=== PATIENT | female | born 1980 | race Caucasian/White ===

== ENCOUNTER → 2016-05-10 20:33 | Outpatient (CLI) | payer OTHER ==
[2015-06-17 19:57] VITALS: BMI 29.1
[~2016-05-10 20:33] MED LIST: AMOXICILLIN875 MG PO; GLUCOPHAGE1000 MG PO; HUMALOG 30100 UNITS/; LANTUS SOL100 UNIT/1 SQ; LEVAQUIN750 MG PO; LYRICA75 MG PO; MUCINEX600 MG PO; NORCO 7.5/325 T1 TA1 PO; NOVOLOG100 U/M1 SC; PRINIVIL20 MG PO; PROAIR HFA8.5 GM INH; PROTONIX40 MG PO; REGLAN5 MG PO; SYNTHROID125 MCG PO; TOUJEO SOL300 UNIT/1 SQ
[2016-05-10 21:15] LABS: AMYLASE - SERUM 90 U/L (25-115); LIPASE 168 U/L (73-393)
== END | disposition home or self-care (01) ==
LOC: D.LABREF 20:33
PROVIDERS: Family Medicine
DX: R10.11 Right upper quadrant pain (principal); R10.13 Epigastric pain; R10.12 Left upper quadrant pain

== ENCOUNTER 2016-05-26 18:03 | Observation (INO) | payer OTHER, MEDICAID ==
[~2016-05-26] VITALS: Ht 165.1 cm; Wt 90.3 kg
[2016-05-26 02:00] VITALS: BP 104/70
[~2016-05-26 18:03] MED LIST changes: -HUMALOG 30100 UNITS/; -LANTUS SOL100 UNIT/1 SQ; -LYRICA75 MG PO; -NORCO 7.5/325 T1 TA1 PO; -NOVOLOG100 U/M1 SC; -PROTONIX40 MG PO; -REGLAN5 MG PO; -SYNTHROID125 MCG PO; -TOUJEO SOL300 UNIT/1 SQ
[2016-05-26] MEDS ORDERED: SYNTHROID125 MCG PO (18:27)
[2016-05-26] MEDS ORDERED: LYRICA75 MG PO (18:28)
[2016-05-26] MEDS ORDERED: NORCO 7.5/325 T1 TA1 PO (18:29)
[2016-05-26] MEDS ORDERED: HUMALOG 30100 UNITS/ (18:34)
[2016-05-26] MEDS ORDERED: LANTUS SOL100 UNIT/1 SQ (18:39)
[2016-05-26 18:46] LABS: BASOPHILS 0.5 % (0.0-2.0); EOSINOPHILS 1.8 % (0-7); HEMATOCRIT 37.5 % (36.0-48.0); HEMOGLOBIN 12.4 g/dL (12-16); IMMATURE GRANULOCYTES 0.7 % (0-5); LYMPHOCYTES 32.3 % (15-50); MCH 33.6 pg (26.0-34.0); MCHC 33.1 g/dL (31.0-37.0); MCV 101.6 fL (80.0-100.0); MEAN PLATELET VOLUME 10.6 fL (7.4-10.4); MONOCYTES 6.9 % (2-11); NEUTROPHILS 57.8 % (40-80); PLATELET COUNT 252 10x3/uL (130-400); RBC 3.69 10x6/uL (4.00-5.40); RDW 14.4 % (11.5-14.5); WBC 10.1 10x3/uL (4.8-10.8)
[2016-05-26 19:13] LABS: ALKALINE PHOSPHATASE 85 U/L (46-116); ALT (SGPT) 71 U/L (10-68); BILIRUBIN - TOTAL 0.24 mg/dL (0.2-1.3); CALCIUM 8.7 mg/dL (8.5-10.1); CARBON DIOXIDE 25.4 mmol/L (21.0-32.0); CHLORIDE - SERUM 102 mmol/L (98-107); CREATININE - SERUM 0.9 mg/dL (0.6-1.3); POTASSIUM - SERUM 4.3 mmol/L (3.5-5.1); PROTEIN - SERUM 7.4 g/dL (6.4-8.2); SODIUM 140 mmol/L (136-145); UREA NITROGEN 29 mg/dL (7-18); eGFR NON AFRICAN AMERICAN 75 mL/min (90-120)
[2016-05-26 19:23] LABS: CALC OSMOLALITY 291 mosm/kg (275-300); GLUCOSE 225 mg/dL (74-106)
--- NOTE | 2016-05-26 20:00 | NUR ---
RESTING IN BED. ALERT/ORIENTED. ON CLEAR LIQUID DIET. WILL BE NPO AT MIDNIGHT UNTIL SEEN BY TRAIN INSPECTOR IN AM. CURRENTLY SR PER TELEMETRY. SEE SHIFT ASSESSMENT. CPOC.
[2016-05-26 20:41] LABS: CKMB 7.3 U/L (0.0-3.6); CREATINE KINASE 556 UL (21-215)
[2016-05-26 20:44] LABS: TROPONIN-I < 0.017 ng/mL (0.000-0.060)
--- NOTE | 2016-05-26 23:36 | NUR ---
22G IV STARTED TO LEFT HAND WITH NS @ 100ML/HR INFUSING. PT TO BE NPO AT MIDNIGHT. INSTRUCTED ON NEED FOR UA SPECIMENS X 2. HAT IN TOILET TO COLLECT SPECIMEN.
[2016-05-26 23:40] VITALS: BMI 33.1
[2016-05-27] VITALS: BP 122/85
[2016-05-27 00:58] LABS: CKMB 5.3 U/L (0.0-3.6); CREATINE KINASE 449 UL (21-215); TROPONIN-I < 0.017 ng/mL (0.000-0.060)
[2016-05-27 04:00] VITALS: BP 115/83
--- NOTE | 2016-05-27 05:45 | NUR ---
EKG PERFORMED. IVF INFUSING. PT INSTRUCTED ON NEED FOR URINE FOR LAB TESTING.
--- NOTE | 2016-05-27 06:23 | NUR ---
URINE OBTAINED AND SPECIMEN TAKEN TO LAB.
[2016-05-27 06:37] LABS: BASOPHILS 0.5 % (0.0-2.0); EOSINOPHILS 2.4 % (0-7); HEMATOCRIT 35.4 % (36.0-48.0); HEMOGLOBIN 11.5 g/dL (12-16); IMMATURE GRANULOCYTES 0.7 % (0-5); LYMPHOCYTES 32.7 % (15-50); MCH 33.1 pg (26.0-34.0); MCHC 32.5 g/dL (31.0-37.0); MEAN PLATELET VOLUME 10.5 fL (7.4-10.4); MONOCYTES 7.2 % (2-11); NEUTROPHILS 56.5 % (40-80); PLATELET COUNT 222 10x3/uL (130-400); RBC 3.47 10x6/uL (4.00-5.40); RDW 14.6 % (11.5-14.5); WBC 7.6 10x3/uL (4.8-10.8)
[2016-05-27 07:04] LABS: APPEARANCE CLEAR (CLEAR); BILIRUBIN NEGATIVE (NEGATIVE); COLOR YELLOW (YELLOW); GLUCOSE NEGATIVE (NEGATIVE); KETONE NEGATIVE (NEGATIVE); LEUKOCYTE ESTERASE TRACE (NEGATIVE); NITRITE NEGATIVE (NEGATIVE); PROTEIN NEGATIVE (NEGATIVE); UROBILINOGEN NORMAL (NORMAL)
[2016-05-27 07:05] LABS: BACTERIA FEW /hpf (NONE SEEN); EPITHELIAL CELLS 0-5 /hpf (0-5); RED CELLS - URINE OCC /hpf (0-5)
[2016-05-27 07:17] LABS: ALBUMIN 3.5 g/dL (3.4-5.0); ALKALINE PHOSPHATASE 66 U/L (46-116); ALT (SGPT) 57 U/L (10-68); BILIRUBIN - TOTAL 0.42 mg/dL (0.2-1.3); CALCIUM 8.1 mg/dL (8.5-10.1); CARBON DIOXIDE 25.6 mmol/L (21.0-32.0); CHLORIDE - SERUM 104 mmol/L (98-107); CKMB 4.9 U/L (0.0-3.6); CREATINE KINASE 438 UL (21-215); CREATININE - SERUM 0.8 mg/dL (0.6-1.3); GLUCOSE 183 mg/dL (74-106); PROTEIN - SERUM 6.9 g/dL (6.4-8.2); SODIUM 139 mmol/L (136-145); eGFR NON AFRICAN AMERICAN 86 mL/min (90-120)
[2016-05-27 07:20] LABS: CALC OSMOLALITY 285 mosm/kg (275-300); TROPONIN-I < 0.017 ng/mL (0.000-0.060); UREA NITROGEN 20 mg/dL (7-18)
--- NOTE | 2016-05-27 07:25 | NUR ---
ASSESSMENT COMPLETED.TELEMERTY SHOWS SR 75. LEFT HAND SL PATENT. DENIES ANY NEEDS. FS 165. NPO FOR TEST. SR UP WITH CALL LIGHT IN REACH. WILL MONITOR
[2016-05-27 07:48] VITALS: BP 121/89
[2016-05-27 08:11] LABS: AMYLASE - SERUM 62 U/L (25-115); LIPASE 140 U/L (73-393)
[2016-05-27 10:07] LABS: APPEARANCE CLEAR (CLEAR); BILIRUBIN NEGATIVE (NEGATIVE); COLOR YELLOW (YELLOW); GLUCOSE NEGATIVE (NEGATIVE); KETONE NEGATIVE (NEGATIVE); LEUKOCYTE ESTERASE NEGATIVE (NEGATIVE); NITRITE NEGATIVE (NEGATIVE); PROTEIN NEGATIVE (NEGATIVE); SPECIFIC GRAVITY 1.015 (1.005-1.020); UROBILINOGEN NORMAL (NORMAL)
--- NOTE | 2016-05-27 11:05 | NUR ---
RATIONALE FOR SCD'S EXPLAINED. REFUSED SCD'S AT THIS TIME
[2016-05-27 12:05] VITALS: BP 107/80
[2016-05-27 13:52] VITALS: Ht 165.1 cm; Wt 90.3 kg
[2016-05-27 15:01] LABS: HCG SERUM NEGATIVE (NEGATIVE)
[2016-05-27 15:53] VITALS: BP 123/96
--- NOTE | 2016-05-27 15:54 | NUR ---
PRE OPED FOR EGD. WAITNG FOR TRANSPORT TO GI LAB
--- NOTE | 2016-05-27 17:34 | NUR ---
BACK FROM GI LAB. V/S STABLE.SEDATED BUT EASILY AWAKEN. FAMILY AT BEDSIDE.SR UP WITH CALL LIGHT IN REACH.
[2016-05-27 20:00] VITALS: BP 128/94
--- NOTE | 2016-05-27 20:00 | NUR ---
PT RESTING IN BED. TEARFUL/UPSET AND WANTING SOLD FOOD. SHE SAYS THE DOCTOR THAT DID HER EGD TODAY TOLD HER SHE COULD EAT AFTER 3 HOURS. PT STATES SHE HAS EATEN CLEAR LIQUIDS AND TOLERATED THEM WITH NO PROBLEMS AND NOW SHE WANTS FOOD. PT IS ADAMENT THAT SHE NEEDS FOOD. FINALLY GAVE PT A SANDWICH TRAY AND [place] DRINK AND SHE FINISHED THE WHOLE MEAL. IVF INFUSING NS @ 100ML/HR TO LEFT HAND. SR PER TELEMETRY.
[2016-05-28] VITALS: BP 124/82
[2016-05-28 04:00] VITALS: BP 129/90
[2016-05-28 05:01] LABS: BASOPHILS 0.5 % (0.0-2.0); EOSINOPHILS 3.3 % (0-7); HEMATOCRIT 35.1 % (36.0-48.0); HEMOGLOBIN 11.5 g/dL (12-16); IMMATURE GRANULOCYTES 0.5 % (0-5); LYMPHOCYTES 33.3 % (15-50); MCH 32.9 pg (26.0-34.0); MCHC 32.8 g/dL (31.0-37.0); MCV 100.3 fL (80.0-100.0); MEAN PLATELET VOLUME 10.3 fL (7.4-10.4); MONOCYTES 7.2 % (2-11); NEUTROPHILS 55.2 % (40-80); PLATELET COUNT 213 10x3/uL (130-400); RDW 14.3 % (11.5-14.5); WBC 6.7 10x3/uL (4.8-10.8)
[2016-05-28 05:21] LABS: ALBUMIN 3.5 g/dL (3.4-5.0); ALKALINE PHOSPHATASE 64 U/L (46-116); ALT (SGPT) 60 U/L (10-68); BILIRUBIN - TOTAL 0.47 mg/dL (0.2-1.3); CALC OSMOLALITY 282 mosm/kg (275-300); CALCIUM 8.4 mg/dL (8.5-10.1); CHLORIDE - SERUM 104 mmol/L (98-107); CREATININE - SERUM 0.7 mg/dL (0.6-1.3); GLUCOSE 162 mg/dL (74-106); POTASSIUM - SERUM 3.8 mmol/L (3.5-5.1); SODIUM 140 mmol/L (136-145); eGFR NON AFRICAN AMERICAN > 90 mL/min (90-120)
[2016-05-28 05:23] LABS: UREA NITROGEN 12 mg/dL (7-18)
--- NOTE | 2016-05-28 07:40 | NUR ---
ASSESSMENT COMPLETED. TELEMERTY SHOWS SR 80. LEFT HAND IV WITH NS AT 100. DENIES ANY NEEDS. REFUSES SCDS. CALL LIGHT IN REACH WITH SR UP
[2016-05-28 08:22] VITALS: BP 124/79
--- NOTE | 2016-05-28 10:16 | NUR ---
RESTING QUIETLY NAD NOTED
--- NOTE | 2016-05-28 11:29 | NUR ---
LYING QUIETLY. DENIES ANY NEED. CALL LIGHT IN REACH WITH SIDE RAILS UP. WILL MONITOR
--- NOTE | 2016-05-28 12:30 | NUR ---
Nutrition follow-up: Diet has advanced to ADA consistent CHO with pt eating 100% of all meals offered. Labs reviewed Wt: 199# RDN following.
[2016-05-28 12:42] VITALS: BP 124/88
--- NOTE | 2016-05-28 15:40 | NUR ---
LYING QUIETLY. DENIES ANY NEEDS. SR UP WITH CALL LIGHT IN REACH. WILL MONITOR
[2016-05-28 16:55] VITALS: BP 138/99
--- NOTE | 2016-05-28 18:16 | NUR ---
HOB UP WATCHING TV. TELEMERTY SHOWS SR. SR UP WITH CALL LIGHT IN REACH. WILL MONITOR
--- NOTE | 2016-05-28 19:26 | NUR ---
INITIAL ROUNDS COMPLETED. PT DENIES ANY DISCOMFORT. WILL CONTINUE TO MONITOR.
[2016-05-28 21:31] VITALS: BP 122/88
--- NOTE | 2016-05-28 22:04 | NUR ---
ASSESSMENT COMPLETED AR 2000 HRS. PT DENIED ANY DISCOMFORT. VSS. IV TO L HAD SL. LUNGS CTA. SR PER CM HR 84. PM MEDS GIVEN. PT CURRENTLY RESTING WITH EYES CLOSED. RESP EVEN AND REGULAR. SR UP X2, CALL LIGHT WITHIN REACH.
--- NOTE | 2016-05-29 00:27 | NUR ---
PT RESTING WITH EYES CLOSED. RESP EVEN AND REGULAR. SR UP X2, CALL LIGHT WITHIN REACH.
--- NOTE | 2016-05-29 02:10 | NUR ---
PT RESTING WITH EYES CLOSED. RESP EVEN AND REGULAR. SR UP X2, CALL LIGHT WITHIN REACH.
--- NOTE | 2016-05-29 04:18 | NUR ---
PT RESTING WITH EYES CLOSSED. RESP EVEN AND REGULAR. SR UP X2, CALL LIGHT WITHIN REACH.
[2016-05-29 05:53] VITALS: BP 133/91
--- NOTE | 2016-05-29 06:33 | NUR ---
VSS THROUGHOUT NIGHT. SR PER CM. PT DENIED ANY DISCOMFORT. NEEDS MET; WILL CONITNUE TO MONITOR.
--- NOTE | 2016-05-29 07:16 | NUR ---
RECEIVED PT REPORT., NO OTHER NEEDS AT THIS TIME. WILL CONTINUE TO MONITOR.
--- NOTE | 2016-05-29 07:55 | NUR ---
PT IS ALERT. ASSESSMENT DONE PER FLOWSHEET. NO OTHER NEEDS AT THIS TIME. WILL CONTINUE TO MONITOR.
[2016-05-29 09:19] VITALS: BP 114/90
[2016-05-29] MEDS ORDERED: REGLAN5 MG PO (12:10)
[2016-05-29] MEDS ORDERED: PROTONIX40 MG PO (12:10)
[2016-05-29 12:21] VITALS: BP 131/100
--- NOTE | 2016-05-30 10:24 | DS ---
PATIENT:FLAKITA GUZMAN :80 MEDICAL RECORD: [id number] DISCHARGE SUMMARY ADMISSION DATE: 05/26/16 DISCHARGE DATE: 05/29/16 DATE OF ADMISSION: 05/28/2016. DATE OF DISCHARGE: 05/30/2016. ADMITTING DIAGNOSES: Abdominal pain, diabetes mellitus, morbid obesity. DISCHARGE DIAGNOSES: Abdominal pain, diabetes mellitus, morbid obesity. HOSPITAL COURSE: The patient is a 35-year-old female, who apparently had been complaining of increasing abdominal discomfort. She was admitted. GI consultation was obtained. The patient did undergo an EGD, which showed some gastritis, possible gastric and duodenitis. She was started on Prevacid as well as Protonix. Pain has almost totally resolved. During hospitalization, the patient had an abdominal CT scan. The scan did reveal no acute findings, hepatic steatosis was present. It was recommended that the patient have a followup MRI of the abdomen with and without contrast for further evaluation to exclude underlying mass in her abdomen. There was a 5 mm noncalcified pulmonary nodule noted in the left lower lung as well, which was indeterminate. It was recommended that the patient have a followup CT scan of the chest in 6-12 months. This will be arranged with Dr. Padilla to do on an outpatient basis. The pain had resolved. The patient was feeling better. She did wish to be discharged home. Therefore, the patient was discharged on a regular diet. She would be on Reglan 5 mg p.o. q.a.c. and q.h.s. for 1 week, Protonix 40 mg p.o. q.a.m., lisinopril 20 mg 1 p.o. q. day, ProAir HFA 90 mcg 2 puffs q.6 hours p.r.n. shortness of breath, Synthroid 125 mcg once a day, Lyrica 75 mg p.o. b.i.d., [place] 7.5 one every 6 hours p.r.n. severe pain, Humulin 30 units q.a.c., also was on Lantus 30 units subq q.h.s. The patient will follow up with Dr. Padilla in approximately 1 week. It was also recommended that the patient have a gastric emptying study and await biopsies from her EGD. TRANSINT:[id number] Voice Confirmation ID: [id number] DOCUMENT ID: [id number] DENISE MIRZA MD at 1024 CC: SKYLER PADILLA DO [id number] DICTATION DATE: 05/29/16 1214 BENEFITS ASSISTANT: 05/30/16 0856 DIS IN 05/29/16 [id number] [place] [address]
--- NOTE | 2016-06-08 12:04 | OP ---
PATIENT NAME: FLAKITA GUZMAN MEDICAL RECORD: [id number] :80 LOCATION:D.M2 D.2123 ADMISSION DATE:05/26/16 SURGEON: ESTRELLA HOWARD DO DATE OF OPERATION: 05/27/2016 PROCEDURE: EGD with biopsies. SCOPE: Olympus video gastroscope. MEDICATIONS: 400 mg of propofol per anesthesia. INDICATIONS: Epigastric abdominal pain. FINDINGS: Informed consent was given. The patient was made comfortable with the above medication. After reaching an adequate level of sedation by slow IV push, the patient was placed on her left side. The endoscope was then advanced under direct visualization through the mouth to the second portion of the duodenum. The upper, middle and distal thirds of the esophagus appeared normal. At the GE junction, there was a possible LA class A mild reflux induced esophagitis. The scope was advanced into the stomach and retroflexion was performed to view the cardia and the fundus. There were no abnormalities noted here. The scope was then advanced down to the antrum and prepyloric region. In the antrum, there was some very mild erythema consistent with possible gastritis. Random biopsies were taken in the stomach and sent for histology and to rule out H. pylori. The scope was advanced into the duodenum where there were areas of villous flattening and potential duodenitis. Random biopsies were taken of this site as well and sent for histology. The scope was withdrawn from the patient. The patient tolerated the procedure well and there were no complications. Estimated blood loss less than 3 mL. IMPRESSION: 1. Mild esophagitis at the GE junction consistent with reflux. 2. Possible gastritis and duodenitis. 3. Epigastric pain likely not related to findings endoscopically. PLAN AND RECOMMENDATIONS: 1. Continue workup of other potential causes for abdominal pain. 2. Consider gastric emptying study. 3. Continue proton pump inhibitor for 30 days to see if this improves epigastric symptoms. TRANSINT:[id number] Voice Confirmation ID: [id number] DOCUMENT ID: [id number] ESTRELLA HOWARD DO at 1204 CC: [id number] DICTATION DATE: 05/27/16 1709 SLUG PRESS OPERATOR: 05/27/16 2342 DIS IN 05/29/16 [id number] [place] [address]
== END 2016-05-29 12:54 | disposition home or self-care (01) ==
LOC: OBSVTIME 18:03 → D.M2 18:03
PROVIDERS: Anesthesiology; ADMIT Family Medicine
DX: K21.0 Gastro-esophageal reflux disease with esophagitis (principal); K29.70 Gastritis, unspecified, without bleeding; K29.80 Duodenitis without bleeding; E11.40 Type 2 diabetes mellitus with diabetic neuropathy, unspecified; Z79.4 Long term (current) use of insulin; I10 Essential (primary) hypertension; E66.01 Morbid (severe) obesity due to excess calories; R91.1 Solitary pulmonary nodule; K76.0 Fatty (change of) liver, not elsewhere classified; Z87.891 Personal history of nicotine dependence; Z68.33 Body mass index [BMI] 33.0-33.9, adult

== ENCOUNTER 2016-07-13 10:18 | Inpatient (IN) | payer OTHER, MEDICAID ==
[~2016-07-13] VITALS: Ht 165.1 cm; Wt 93.4 kg
[~2016-07-13 10:18] MED LIST changes: +HUMALOG 30100 UNITS/; +LANTUS SOL100 UNIT/1 SQ; +LYRICA75 MG PO; +NORCO 7.5/325 T1 TA1 PO; +PROTONIX40 MG PO; +REGLAN5 MG PO; +SYNTHROID125 MCG PO
[2016-07-13 11:07] LABS: BASOPHILS 0.4 % (0-2); EOSINOPHILS 1.2 % (0-7); HEMATOCRIT 40.7 % (36.0-48.0); HEMOGLOBIN 13.5 g/dL (12-16); IMMATURE GRANULOCYTES 0.7 % (0-5); LYMPHOCYTES 22.9 % (15-50); MCH 34.4 pg (26.0-34.0); MCHC 33.2 g/dL (31.0-37.0); MCV 103.6 fL (80.0-100.0); MEAN PLATELET VOLUME 10.5 fL (7.4-10.4); MONOCYTES 6.6 % (2-11); NEUTROPHILS 68.2 % (40-80); RBC 3.93 10x6/uL (4.00-5.40); RDW 13.5 % (11.5-14.5); WBC 10.3 10x3/uL (4.8-10.8)
[2016-07-13 11:12] LABS: PLATELET COUNT 290 10x3/uL (130-400)
[2016-07-13 11:26] LABS: ALBUMIN 3.8 g/dL (3.4-5.0); ANION GAP 15.2 mmol/L (8-16); BILIRUBIN - TOTAL 0.31 mg/dL (0.2-1.3); CALCIUM 9.6 mg/dL (8.5-10.1); CARBON DIOXIDE 25.9 mmol/L (21.0-32.0); CREATININE - SERUM 1.1 mg/dL (0.6-1.3); POTASSIUM - SERUM 4.1 mmol/L (3.5-5.1); PROTEIN - SERUM 7.7 g/dL (6.4-8.2)
[2016-07-13 11:27] VITALS: BP 111/70; BMI 10.9
[2016-07-13 12:08] VITALS: BP 111/70
[2016-07-13] MEDS ORDERED: TOUJEO SOL300 UNIT/1 SQ (14:51)
[2016-07-13] MEDS ORDERED: NOVOLOG100 U/M1 SC (14:53)
[2016-07-13 14:59] LABS: HCG SERUM NEGATIVE (NEGATIVE)
[2016-07-13 19:00] VITALS: BP 110/68
--- NOTE | 2016-07-13 20:39 | NUR ---
2000) REC'D. STATING DR PRUETT WAS JUST HERE AND SAYS I CAN EAT.INFORMED HE DID NOT WRITE A DIET FOR ABDOMINAL ULTRASOUND.FAMILY HERE WITH MEAL FROM [facility] "STATES DR PRUETT WAS JUST HERE AND SAID I COULD EAT SO I'M GOING TO EAT.EXPLAINED IF EAT A MEAL MAY PUT YOU A DAY BEHIND IN THE INSTANCE NEEDED TO DO PROCEDURE. VOICES UNDERSTANDING.STATES AGAIN STOOD HERE AND SAID I COULD EAT AND I'M GONNA EAT.
--- NOTE | 2016-07-13 22:37 | NUR ---
NEW IV SITED TO LEFT FOREARM. 20G X 1 ATTEMPT. GOOD BLOOD RETURN. FLUSHES W/O DIFFICULTY. FLUIDS HOOKED BACK UP PER ORDER. PT TOLERATED WELL. IV TO LEFT HAND D/C'D WITH CATH TIP INTACT.
[2016-07-14 04:00] VITALS: BP 134/74
[2016-07-14 04:54] LABS: BASOPHILS 0.4 % (0-2); EOSINOPHILS 2.2 % (0-7); HEMATOCRIT 38.7 % (36.0-48.0); HEMOGLOBIN 12.9 g/dL (12-16); LYMPHOCYTES 38.3 % (15-50); MCH 34.7 pg (26.0-34.0); MCHC 33.3 g/dL (31.0-37.0); MEAN PLATELET VOLUME 10.4 fL (7.4-10.4); MONOCYTES 7.3 % (2-11); NEUTROPHILS 50.8 % (40-80); PLATELET COUNT 257 10x3/uL (130-400); RBC 3.72 10x6/uL (4.00-5.40); RDW 13.6 % (11.5-14.5); WBC 8.3 10x3/uL (4.8-10.8)
[2016-07-14 05:26] LABS: ALBUMIN 3.5 g/dL (3.4-5.0); ALKALINE PHOSPHATASE 100 U/L (46-116); ALT (SGPT) 64 U/L (10-68); BILIRUBIN - TOTAL 0.15 mg/dL (0.2-1.3); CALC OSMOLALITY 285 mosm/kg (275-300); CARBON DIOXIDE 26.2 mmol/L (21.0-32.0); CHLORIDE - SERUM 102 mmol/L (98-107); CREATININE - SERUM 0.9 mg/dL (0.6-1.3); POTASSIUM - SERUM 4.1 mmol/L (3.5-5.1); PROTEIN - SERUM 7.1 g/dL (6.4-8.2); SODIUM 137 mmol/L (136-145); UREA NITROGEN 25 mg/dL (7-18); eGFR NON AFRICAN AMERICAN 75 mL/min (90-120)
[2016-07-14 05:36] LABS: GLUCOSE 238 mg/dL (74-106)
[2016-07-14 08:25] VITALS: BP 108/71
--- NOTE | 2016-07-14 10:35 | NUR ---
Verbalized name and , patient anxiously keep requesting something to eat, re educated on NPO status until all her order test are complete and red per MD. States no abdominal pain at this time " I'm just hungry." no nausea or vomitting. No distress assessed. Call light within reach. Instructed patient that we need a urine specimen. Verbalized understanding.
[2016-07-14 10:59] VITALS: BP 122/91
[2016-07-14 15:14] VITALS: Ht 165.1 cm; Wt 93.4 kg
[2016-07-14 16:01] VITALS: BP 122/89
--- NOTE | 2016-07-14 16:30 | NUR ---
All test are complete, nurse Omer contacted to see if patient is able to eat now, low fat diet ordered for dinner. Instructed patient that her NPO status has been discontinued.
--- NOTE | 2016-07-14 17:50 | NUR ---
Ate dinner without any GI complications. Re educated on need for urine specimen, cup and [place] hat in room.
--- NOTE | 2016-07-14 19:00 | NUR ---
BEDSIDE REPORT RECEIVED AND CARE OF PT ASSUMED. PT LYING ON RIGHT SIDE WITH EYES CLOSED AND UNLABORED BREATHING. IV IN LEFT FA PATENT WITH NS INFUSING AT 100 ML / HR. WILL MONITOR NESTORLEY FOR NEEDS.
[2016-07-14 19:37] LABS: APPEARANCE CLEAR (CLEAR); BILIRUBIN NEGATIVE (NEGATIVE); COLOR YELLOW (YELLOW); GLUCOSE NEGATIVE (NEGATIVE); KETONE NEGATIVE (NEGATIVE); LEUKOCYTE ESTERASE NEGATIVE (NEGATIVE); NITRITE NEGATIVE (NEGATIVE); PROTEIN NEGATIVE (NEGATIVE); UROBILINOGEN NORMAL (NORMAL)
[2016-07-14 20:49] VITALS: BP 138/79
--- NOTE | 2016-07-14 22:00 | NUR ---
HS MEDICATIONS GIVEN. FSBS 192 THIS CHECK, REQUIRING COVERAGE WITH 8 UNITS OF INSULIN PER SLIDING SCALE. WILL CONTINUE TO MONITOR FOR NEEDS.
--- NOTE | 2016-07-14 22:15 | NUR ---
PT CONSENTED FOR PPIO JOSEPH.
[2016-07-15] VITALS (9 sets, daily range): BP systolic 111–136; BP diastolic 67–95
--- NOTE | 2016-07-15 | NUR ---
NPO STATUS BEGINS NOW. ALL FOOD AND LIQUIDS REMOVED FROM BEDSIDE TRAY.
--- NOTE | 2016-07-15 07:45 | NUR ---
PT ASSESSMENT COMPLETE PT AWAKE AND ALERT HAS HAD HIBICLENSE SHOWER PRIOR TO LAP EULOGIO TODAY WILL MONITOR CALL LIGHT IN REACH SIDE RAILS UP X 2 NPO
[2016-07-15 09:18] LABS: HEPATITIS C ANTIBODY <0.1 (0.0-0.9)
--- NOTE | 2016-07-15 13:30 | NUR ---
PT TO OR AT THIS TIME PER BED VIA OR STAFF.
[2016-07-15] MEDS ORDERED: OXYCODONE HCL5 MG PO (15:55)
--- NOTE | 2016-07-15 17:06 | NUR ---
RECIEVED TO ROOM FROM RR ASLEEP AROUSES TO VERBAL STIMULI BUT QUICKLY BACK TO SLEEP HAS LAP SITES X 4
--- NOTE | 2016-07-15 18:52 | NUR ---
PT AROUSED TO VERBAL STIMULI FSBS 287 SLIDING SCALE IS TO GIVE 16 UNITS PT REFUSED ALL BUT 8 STATES THAT SHE HAS NO EATEN ENOUGH NOR WILL SHE AFTER HER SURGERY
--- NOTE | 2016-07-15 20:00 | NUR ---
PT RECEIVED RESTING IN BED WITH EYES CLOSED. PT LAPSITES NOTED TO HAVE SCANT AMOUNT OF BLOOD, DRY DRESSINGS APPLIED. PT AWAKE AND ALERT. C/O INCISIONAL PAIN. BED IN LOW POSITION. SIDE RAILS UP X2. CALL LIGHT AND H2O IN REACH.
[2016-07-16] VITALS: BP 134/82
--- NOTE | 2016-07-16 03:51 | NUR ---
RN NOTE: PT LYING IN SEMI ENGLISH'S POSITION WITH EYES CLOSED AND UNLABORED BREATHING. IV IN LEFT FOREARM PATENT WITH NS INFUSING AT 100 ML / HR. ABDOMINAL LAP SITES X4 CLEAN AND DRY. SIDE RAILS UP X2 FOR SAFETY.
[2016-07-16 04:00] VITALS: BP 119/79
[2016-07-16 04:44] LABS: BASOPHILS 0.2 % (0-2); EOSINOPHILS 1.7 % (0-7); HEMATOCRIT 35.2 % (36.0-48.0); HEMOGLOBIN 11.5 g/dL (12-16); IMMATURE GRANULOCYTES 0.3 % (0-5); MCH 34.3 pg (26.0-34.0); MCHC 32.7 g/dL (31.0-37.0); MCV 105.1 fL (80.0-100.0); MEAN PLATELET VOLUME 10.1 fL (7.4-10.4); MONOCYTES 6.6 % (2-11); NEUTROPHILS 82.2 % (40-80); PLATELET COUNT 247 10x3/uL (130-400); RBC 3.35 10x6/uL (4.00-5.40); RDW 13.8 % (11.5-14.5)
[2016-07-16 04:46] LABS: WBC 11.8 10x3/uL (4.8-10.8)
[2016-07-16 04:51] LABS: CALCIUM 7.6 mg/dL (8.5-10.1); CARBON DIOXIDE 24.5 mmol/L (21.0-32.0); CHLORIDE - SERUM 102 mmol/L (98-107); CREATININE - SERUM 0.9 mg/dL (0.6-1.3); MAGNESIUM - SERUM 1.9 mg/dL (1.8-2.4); POTASSIUM - SERUM 4.1 mmol/L (3.5-5.1); SODIUM 137 mmol/L (136-145); eGFR NON AFRICAN AMERICAN 75 mL/min (90-120)
[2016-07-16 04:52] LABS: CALC OSMOLALITY 277 mosm/kg (275-300); GLUCOSE 166 mg/dL (74-106); UREA NITROGEN 12 mg/dL (7-18)
--- NOTE | 2016-07-16 08:20 | OP ---
PATIENT NAME: FLAKITA GUZMAN MEDICAL RECORD: [id number] :80 LOCATION:D.MS Magana2234 ADMISSION DATE:07/14/16 SURGEON: DENISE POOLE MD DATE OF OPERATION: 07/15/2016 SURGEON: Denise Poole MD. PREOPERATIVE DIAGNOSES: 1. Biliary dyskinesia. 2. Right upper quadrant pain. POSTOPERATIVE DIAGNOSES: 1. Biliary dyskinesia. 2. Right upper quadrant pain. PROCEDURE PERFORMED: Laparoscopic cholecystectomy. ANESTHESIA: General. COMPLICATIONS: None. SPECIMENS: Gallbladder. Case was clean contaminated. ESTIMATED BLOOD LOSS: 30 cc. OPERATIVE COURSE: After consent was obtained, the patient was taken to the operating room and placed in the supine position on the operating table. Next, general anesthesia was given via endotracheal intubation after a timeout was performed to confirm the correct patient and procedure. The abdomen was then prepped and draped in typical sterile fashion. Local anesthetic was injected just above the umbilicus. A stab incision was performed with 11-blade scalpel. Using a 5-mm bladeless optical trocar, the abdomen was entered under direct laparoscopic vision. Adequate pneumoperitoneum was achieved. The abdominal cavity was inspected. No evidence of bowel injury. No evidence of bleeding. The patient was then placed in the steep reverse Trendelenburg position. At this time, all remaining trocars were placed after the administration of local anesthetic under direct laparoscopic vision, two 5-mm trocars in the right upper quadrant and 11-mm trocar in the subxiphoid position. At this time, the fundus of the gallbladder was grasped and retracted cephalad. The infundibulum was grasped and retracted laterally. The peritoneum was incised using blunt dissection with a [place] dissector, dissection was performed until the critical view was obtained. The cystic duct lateral, cystic artery medial, liver in the posterior window. Three clips were placed in the proximal cystic duct, 1 clip distal and 2 clips were placed in the proximal cystic artery. The duct and artery were then transected with laparoscopic Metzenbaum scissors. The 11-mm trocars were placed. The 12-mm trocar and the 12-mm Ligaclip distributor of directories were used to reinforce the cystic duct. The cystic duct was markedly dilated. The larger clips were able to be placed across the entire width of the duct. At this time, the remaining portion of the gallbladder was then dissected off the liver bed using electrocautery. Once complete, it was grasped with the tenaculum and removed through the 11-mm trocar and sent for permanent pathology. Next, the operative site was copiously irrigated and suctioned. Careful attention was paid to hemostasis, which was obtained with ____ electrocautery. OPERATIVE REPORT [id number] FLAKITA The operative site was again inspected. There are [address] in the cystic duct, [address] in the cystic artery. There was no evidence of bowel injury. No evidence of bleeding, no evidence of bile leak. At this time, the operative site was again irrigated and suctioned. The abdominal cavity was inspected. There is no evidence of bowel injury. No evidence of bleeding. All remaining instruments at this time were removed. The abdomen was desufflated. Trocars were then removed. Skin was closed with 4-0 Monocryl, Mastisol and Steri-Strips. At the end of the case, all needle and instrument counts were correct. No complications occurred. The patient was extubated and transferred to the PACU in stable condition. TRANSINT:[id number] Voice Confirmation ID: [id number] DOCUMENT ID: [id number] DENISE POOLE MD at 0820 CC: [id number] DICTATION DATE: 07/15/16 160 OVERHAULER HELPER: 07/16/16 0041 ADM IN [facility] [address] [place] [address]
--- NOTE | 2016-07-16 08:41 | NUR ---
PT SEEN. NO COMPLAINTS OF PAIN BUT MILD DISCOMFORT TO ABDOMEN. BANDAIDS X 4 NOTED FROM LAP CHOLY SITE. UP TO BATHROOM WITH ASSIST. CALL LIGHT IN REACH
[2016-07-16 11:35] VITALS: BP 125/75
--- NOTE | 2016-07-16 14:08 | NUR ---
Nutrition Follow Up: Chart reviewed. Pt is tolerating diet with no N/V. SHe is eating 100% meal avg on a diabetic diet. Wt stable. +BM 07/15/16. Labs reviewed - Glucose elevated. Meds noted including Humulin. Rec continue current diet. RD following.
--- NOTE | 2016-07-16 16:40 | NUR ---
DISCHARGED PER WC WITH MARCELINO AFTER QUESTIONS ANSWERED FROM PT AND .
--- NOTE | 2016-07-21 09:43 | CN ---
PATIENT NAME:FLAKITA GUZMAN MEDICAL RECORD: [id number] : 80 LOCATION:D.MS [place] ADMIT DATE: 07/14/16 ACCOUNT: [id number] CONSULTING PHYSICIAN: PHAM PRUETT MD REFERRING PHYSICIAN: SKYLER PADILLA DO DATE OF CONSULTATION: 07/13/2016 Consultation Note Addendum CHIEF COMPLAINT: Right upper quadrant pain. HISTORY OF PRESENT ILLNESS: The patient has band-like upper abdominal pain, which extends into the right upper quadrant. The patient has tenderness. She is nauseated despite the fact that she is eating some potato chips. The patient has undergone a CT scan. I personally reviewed the CT images. I personally reviewed the CT report. Symptoms have been present for 3-4 months. They are intermittent. Palpation aggravates. Nothing alleviates. The patient is to undergo a nuclear medicine scan. Several other scans have been recommended by the radiologist and I will order those for 07/14/2016. This is a consultation note addendum. For the typed portion of the consultation note, please see the chart. This would include the past medical and surgical history, allergies, social history as well as home medications. REVIEW OF SYSTEMS: Positive for nausea. Positive for abdominal pain. No shortness of breath. The review of systems is negative other than as is described above. PHYSICAL EXAMINATION: GENERAL: The patient does not appear acutely ill. She does appear chronically ill. The entire physical examination was performed in the presence of a female nurse. VITAL SIGNS: Reviewed. HEAD: Ears appear normal. FACE: She has a james face. NECK: Trachea is midline. CHEST: No intercostal retractions. PULMONARY: Nonlabored, no stridor. ABDOMEN: Some tenderness without guarding in the right upper quadrant. EXTREMITIES: No peripheral cyanosis. INTEGUMENT: No rash, no ulcerations. James face. PSYCHIATRIC: Normal affect. NEUROLOGIC: Nonfocal, no lethargy. The patient answers questions appropriately, moves all extremities well. BACK: No thoracic kyphosis. LYMPHATICS: No lymphangitic streaking of the exposed extremities. IMPRESSION: 1. Right upper quadrant abdominal pain, likely biliary in origin. 2. Hepatomegaly. PLAN: Multiple x-ray studies are pending. The patient likely will undergo cholecystectomy in the future. CONSULT REPORT [id number] FLAKITA GUZMAN TRANSINT:[id number] Voice Confirmation ID: [id number] DOCUMENT ID: [id number] PHAM PRUETT MD at 0943 CC: SKYLER PADILLA DO [id number] DICTATION DATE: 07/14/161841 UNIFORMS SALES REPRESENTATIVE: 07/15/16 0033 DIS IN 07/16/16 [facility] [address] [place] [address]
--- NOTE | 2016-07-21 09:43 | PN ---
PATIENT:FLAKITA GUZMAN MEDICAL RECORD: [id number] LOCATION:D.MS [place] ADMISSION DATE: 07/14/16 PROGRESS NOTE DATE OF SERVICE: 07/14/2016 ADDENDUM: CHIEF COMPLAINT: Better. SUBJECTIVE: She is having less abdominal pain. She did have a PIPIDA scan, which revealed a low ejection fraction, but without reproduction of symptoms. I personally reviewed the PIPIDA scan images as well as the report. I personally reviewed the MRI of the abdomen images and report as well. No liver mass was noted. I have reviewed the ultrasound report. The patient has a generous common bile duct; however, no gallstones, no gallbladder wall thickening, no evidence of acute cholecystitis. The patient has undergone a CT of the chest to investigate the possibility of some pulmonary nodules. I personally reviewed the CT images. I have personally reviewed the CT report. Palpation aggravates. Nothing alleviates. Symptoms are mild. I am going to plan a partial bowel prep, which will be a mechanical bowel prep. I am going to be unable to perform her cholecystectomy tomorrow due to scheduling issues. I have told her that Dr. Montero will be performing the procedure. The risks, possible complications, and alternatives to the procedure were explained to the patient. She elects to proceed. Symptoms are improved. We specifically discussed the risk of bleeding requiring an emergency reoperation, infection, intestinal injury as well as common duct injury. This is a progress note addendum. For the typed portion of the progress note, please see the chart. This would include the past medical and surgical history, allergies, social history, as well as current medications. REVIEW OF SYSTEMS: Positive for nausea as well as abdominal pain. The review of systems is negative other than as described above. PHYSICAL EXAMINATION: GENERAL: The patient appears chronically ill. She does not appear acutely ill. VITAL SIGNS: Reviewed. The entire physical examination was performed with the presence of a female nurse. HEAD: External ears appeared normal. EYES: Extraocular movements are intact. NECK: Trachea is midline. CHEST: No intercostal retractions. PULMONARY: Nonlabored, no stridor. ABDOMEN: Nontender. EXTREMITIES: No peripheral cyanosis. INTEGUMENT: There is an intertriginous rash. She has a allyssa face as well. BACK: No thoracic kyphosis. PSYCHIATRIC: Normal affect. NEUROLOGIC: Nonfocal, no lethargy. LYMPHATICS: No lymphangitic streaking of the exposed extremities. IMPRESSION: Biliary dyskinesia. PLAN: Laparoscopic cholecystectomy, possible cholangiography, and possible PROGRESS NOTE [id number] FLAKITA GUZMAN liver biopsy tomorrow by Dr. Montero. TRANSINT:[id number] Voice Confirmation ID: [id number] DOCUMENT ID: [id number] PHAM PRUETT MD at 0943 CC: [id number] DICTATION DATE: 07/14/16 184 LUG BREAKER AND WIRE PULLER: 07/15/16 1058 DIS IN 07/16/16 [facility] [address] [id number]
== END 2016-07-16 17:08 | disposition home or self-care (01) | DRG 419 ==
LOC: D.MS 10:18 → OBSVTIME 10:18 → D.MS 10:18
PROVIDERS: Surgery; ADMIT Family Medicine
PROC: 0FT44ZZ Resection of Gallbladder, Percutaneous Endoscopic Approach (ICD-10-PCS; principal; 2016-07-15 08:30)
DX: K82.8 Other specified diseases of gallbladder (principal); R16.0 Hepatomegaly, not elsewhere classified; E11.40 Type 2 diabetes mellitus with diabetic neuropathy, unspecified; Z79.4 Long term (current) use of insulin; K21.9 Gastro-esophageal reflux disease without esophagitis; I10 Essential (primary) hypertension; E66.9 Obesity, unspecified; Z68.34 Body mass index [BMI] 34.0-34.9, adult

== ENCOUNTER → 2016-08-24 14:15 | Outpatient (CLI) | payer OTHER, MEDICAID ==
[2016-07-14 15:14] VITALS: BMI 34.2
[~2016-08-24 14:15] MED LIST changes: +NOVOLOG100 U/M1 SC; +OXYCODONE HCL5 MG PO; +TOUJEO SOL300 UNIT/1 SQ
[2016-08-24 18:55] LABS: UDS - AMPHET NEGATIVE QUAL (NEGATIVE); UDS - BARB NEGATIVE QUAL (NEGATIVE); UDS - BENZO NEGATIVE QUAL (NEGATIVE); UDS - COCAINE NEGATIVE QUAL (NEGATIVE); UDS - METH NEGATIVE QUAL (NEGATIVE); UDS - OPIATE POSITIVE QUAL (NEGATIVE); UDS - PCP NEGATIVE QUAL (NEGATIVE); UDS - THC NEGATIVE QUAL (NEGATIVE)
== END | disposition home or self-care (01) ==
LOC: D.LABREF 14:15
PROVIDERS: Family Medicine
DX: M54.5 Low back pain (principal)

== ENCOUNTER → 2016-08-24 19:38 | Outpatient (CLI) | payer OTHER, MEDICAID ==
[2016-07-14 15:14] VITALS: BMI 34.2
== END | disposition home or self-care (01) ==
LOC: D.LABREF 19:38
DX: M54.5 Low back pain (principal)

== ENCOUNTER → 2016-11-08 16:08 | Outpatient (CLI) | payer OTHER, MEDICAID ==
[2016-07-14 15:14] VITALS: BMI 34.2
== END | disposition home or self-care (01) ==
LOC: D.LABREF 16:08
DX: L03.119 Cellulitis of unspecified part of limb (principal)

== ENCOUNTER → 2016-11-11 11:44 | Outpatient (CLI) | payer OTHER, MEDICAID ==
[2016-07-14 15:14] VITALS: BMI 34.2
== END | disposition home or self-care (01) ==
LOC: D.RAD 11:44
DX: K59.00 Constipation, unspecified (principal)

== ENCOUNTER → 2017-08-24 09:55 | Outpatient (CLI) | payer OTHER, MEDICAID ==
[2016-07-14 15:14] VITALS: BMI 34.2
== END | disposition home or self-care (01) ==
LOC: D.CT 07-26 13:30
DX: R91.8 Other nonspecific abnormal finding of lung field (principal)

== ENCOUNTER → 2017-12-30 16:36 | Outpatient (CLI) | payer OTHER, MEDICAID ==
[2016-07-14 15:14] VITALS: BMI 34.2
== END | disposition home or self-care (01) ==
LOC: D.RAD 16:36
DX: M54.5 Low back pain (principal)

== ENCOUNTER → 2018-01-17 12:59 | Outpatient (CLI) | payer OTHER, MEDICAID ==
[2016-07-14 15:14] VITALS: BMI 34.2
== END | disposition home or self-care (01) ==
LOC: D.MRI 12:59
DX: M54.5 Low back pain (principal)

== ENCOUNTER → 2018-03-08 08:13 | Outpatient (CLI) | payer OTHER, MEDICAID ==
[2016-07-14 15:14] VITALS: BMI 34.2
== END | disposition home or self-care (01) ==
LOC: D.NM 08:13
DX: R11.2 Nausea with vomiting, unspecified (principal); R19.7 Diarrhea, unspecified; R10.31 Right lower quadrant pain; R10.10 Upper abdominal pain, unspecified

== ENCOUNTER → 2018-10-18 06:04 | Day surgery (SDC) | payer OTHER, MEDICAID ==
[~2018-10-18] VITALS: Ht 165.1 cm; Wt 103.4 kg
[~2018-10-18 06:04] MED LIST changes: +ESTRADERM 0.10.1 MG TD; +OMEPRAZOLE20 M1 PO; +PROMETRIUM200 MG PO
[2018-10-18 06:36] LABS: HEMATOCRIT 38.1 % (36.0-48.0); HEMOGLOBIN 12.9 g/dL (12-16); MCH 35.6 pg (26.0-34.0); MCHC 33.9 g/dL (31.0-37.0); MCV 105.2 fL (80.0-100.0); MEAN PLATELET VOLUME 10.2 fL (7.4-10.4); RBC 3.62 10x6/uL (4.00-5.40); RDW 13.6 % (11.5-14.5); WBC 11.6 10x3/uL (4.8-10.8)
[2018-10-18 06:55] LABS: ANION GAP 14.7 mmol/L (8-16); CALCIUM 8.9 mg/dL (8.5-10.1); CARBON DIOXIDE 25.5 mmol/L (21.0-32.0); CREATININE - SERUM 1.1 mg/dL (0.6-1.3); POTASSIUM - SERUM 4.2 mmol/L (3.5-5.1)
[2018-10-18 07:18] VITALS: BP 112/67; Ht 165.1 cm; Wt 103.4 kg
--- NOTE | 2018-10-19 17:25 | OP ---
PATIENT NAME: FLAKITA GUZMAN MEDICAL RECORD: [id number] :80 LOCATION:MARCI ADMISSION DATE: SURGEON: ESTRELLA HOWARD DO DATE OF OPERATION: 10/18/2018 PROCEDURE: EGD with biopsies. INDICATIONS FOR PROCEDURE: Diarrhea, nausea and vomiting, generalized abdominal pain, GERD. SCOPE: Olympus video gastroscope. MEDICATIONS: Propofol 240 mg IV per anesthesia. ESTIMATED BLOOD LOSS: Minimal. COMPLICATIONS: None. FINDINGS: Informed consent was given. The patient was made comfortable with the above medication. After reaching an adequate level of sedation by slow IV push, the patient was placed on her left side. The endoscope was advanced under direct visualization through the mouth to the second portion of the duodenum with ease. The entire esophagus appeared normal. Random cold forceps biopsies were taken from the midesophagus to rule out the presence of EoE. At the GE junction, there were mild changes consistent with LA class A reflux-induced esophagitis. The endoscope was advanced beyond the GE junction into the stomach and retroflexed to view the cardia, which appeared normal. Throughout the entire stomach, there were diffuse changes of erythema, granularity, and friability consistent with gastritis. Random cold forceps biopsies were taken from all segments in the stomach to submit for histopathology and to rule out the presence of H. pylori. In the stomach, there was also a small amount of bilious fluid present. There were no obvious gastric contractions visualized during the examination. These 2 factors raised suspicion for possible gastroparesis. The endoscope was advanced through the pylorus into the duodenum, which appeared normal down to the second portion. Biopsies were taken due to the patient's history of diarrhea. The endoscope was then withdrawn from the patient. The patient tolerated the procedure well and there were no complications. IMPRESSION: 1. LA class A reflux-induced esophagitis. 2. Diffuse, mild gastritis. 3. Possible gastroparesis by clinical symptoms and endoscopic findings. PLAN AND RECOMMENDATIONS: 1. Discharge home when recovery parameters are met. 2. Follow up biopsy specimen results. 3. GERD diet and reflux precautions. 4. Continue current medications including omeprazole 40 mg daily and cholestyramine 4 grams twice daily. 5. Trial of metoclopramide 5 mg tablets to be taken before meals and at bedtime for 1 week. 6. Follow up in GI clinic in 2-3 weeks. If trial of metoclopramide does not help with symptoms, we will proceed with trial of Xifaxan for generalized abdominal pain and diarrhea. OPERATIVE REPORT [id number] FLAKITA GUZMAN TRANSINT:[id number] Voice Confirmation ID: [id number] DOCUMENT ID: [id number] ESTRELLA HOWARD DO at 1725 CC: [id number] DICTATION DATE: 10/18/18830 CLERICAL OFFICE WORKER: 10/18/18 0859 [facility] 10/18/[address] [address]
== END | disposition home or self-care (01) ==
LOC: D.OPS 06:04
PROVIDERS: Anesthesiology; ATTEND Internal Medicine Gastroenterology
DX: K29.50 Unspecified chronic gastritis without bleeding (principal); K21.0 Gastro-esophageal reflux disease with esophagitis; Z01.812 Encounter for preprocedural laboratory examination

== ENCOUNTER 2018-12-22 12:54 | Inpatient (IN) | payer OTHER, MEDICAID ==
[~2018-12-22] VITALS: Ht 165.1 cm; Wt 96.6 kg
[2018-12-22 13:59] VITALS: BP 113/82; BMI 35.5
--- NOTE | 2018-12-22 14:00 | NUR ---
OV STARTED WITH 22G TO LT. F/A WITH IVF INFUSING AT PRESCRIBED RATE. ABDOMEN SOFT WITH TENDERNESS NOTED TO RUQ ANTERIOR WITH BS NOTED. DULL ACHING ALSO TO LLQ ANTERIOR. ENCOURAGED TO USE CALL LIGHT FOR ASSIST. DILAUDID GIVEN PRN FOR PAIN.
[2018-12-22 15:04] LABS: BASOPHILS 0.2 % (0-2); EOSINOPHILS 0.7 % (0-7); HEMATOCRIT 35.9 % (36.0-48.0); IMMATURE GRANULOCYTES 0.5 % (0-5); LYMPHOCYTES 13.9 % (15-50); MCH 35.9 pg (26.0-34.0); MCHC 33.4 g/dL (31.0-37.0); MCV 107.5 fL (80.0-100.0); MEAN PLATELET VOLUME 10.4 fL (7.4-10.4); NEUTROPHILS 77.7 % (40-80); PLATELET COUNT 293 10x3/uL (130-400); RBC 3.34 10x6/uL (4.00-5.40); RDW 13.9 % (11.5-14.5)
[2018-12-22 15:19] LABS: ALBUMIN 3.8 g/dL (3.4-5.0); ANION GAP 18.7 mmol/L (8-16); BILIRUBIN - TOTAL 0.67 mg/dL (0.2-1.3); CALCIUM 8.6 mg/dL (8.5-10.1); CARBON DIOXIDE 21.7 mmol/L (21.0-32.0); POTASSIUM - SERUM 4.4 mmol/L (3.5-5.1); PROTEIN - SERUM 7.6 g/dL (6.4-8.2)
[2018-12-22 20:05] VITALS: BP 107/69
[2018-12-23] VITALS: BP 115/76
[2018-12-23 03:20] LABS: APPEARANCE CLEAR (CLEAR); BILIRUBIN NEGATIVE (NEGATIVE); COLOR YELLOW (YELLOW); GLUCOSE 250 mg/dL (NEGATIVE); KETONE NEGATIVE (NEGATIVE); NITRITE NEGATIVE (NEGATIVE); PROTEIN NEGATIVE (NEGATIVE); UROBILINOGEN NORMAL (NORMAL)
[2018-12-23 04:00] VITALS: BP 109/74
[2018-12-23 07:15] LABS: BASOPHILS 0.1 % (0-2); EOSINOPHILS 0.7 % (0-7); HEMOGLOBIN 11.2 g/dL (12-16); IMMATURE GRANULOCYTES 0.4 % (0-5); LYMPHOCYTES 14.4 % (15-50); MCH 35.7 pg (26.0-34.0); MCHC 32.9 g/dL (31.0-37.0); MCV 108.3 fL (80.0-100.0); MEAN PLATELET VOLUME 10.1 fL (7.4-10.4); MONOCYTES 7.7 % (2-11); NEUTROPHILS 76.7 % (40-80); PLATELET COUNT 297 10x3/uL (130-400); RBC 3.14 10x6/uL (4.00-5.40); RDW 14.1 % (11.5-14.5)
[2018-12-23 07:32] LABS: % SATURATION 13 % (15-55); IRON 37 ug/dl (35-150); TOTAL IRON BIND CAPACITY 280 ug/dl (260-445); UNSAT IRON BIND CAPACITY 243 ug/dl (150-375)
[2018-12-23 08:00] VITALS: BP 104/65
[2018-12-23 08:00] LABS: CALC OSMOLALITY 282 mosm/kg (275-300); CALCIUM 8.3 mg/dL (8.5-10.1); CARBON DIOXIDE 22.4 mmol/L (21.0-32.0); CHLORIDE - SERUM 104 mmol/L (98-107); CREATININE - SERUM 0.8 mg/dL (0.6-1.3); FERRITIN 338 ng/mL (3-244); GLUCOSE 218 mg/dL (74-106); MAGNESIUM - SERUM 1.8 mg/dL (1.8-2.4); PHOSPHOROUS 3.2 mg/dL (2.5-4.9); POTASSIUM - SERUM 4.1 mmol/L (3.5-5.1); SODIUM 137 mmol/L (136-145); THYROID STIMULATING HORMONE 17.34 uIU/mL (0.36-3.74); UREA NITROGEN 19 mg/dL (7-18); eGFR NON AFRICAN AMERICAN 85 mL/min (90-120)
--- NOTE | 2018-12-23 09:00 | NUR ---
ALERT AND ORIENTEDX4 ABDOMEN OBESE WITH BS HYPOACTIVE X4. RESP EVEN AND UNLABORED. GENERALIZED TENDERNESS TO ABDOMEN ANTERIOR. NO NAUSEA OR PAIN AT THIS TIME. IV TO LT. FOREARM W/O ANY S/S OF INECTION/INFILTRATION. ENCOURAGED TO USE CALL LIGHT FOR ASSIST
[2018-12-23 09:21] VITALS: BMI 35.4
[2018-12-23 15:58] VITALS: Ht 165.1 cm; Wt 96.6 kg
--- NOTE | 2018-12-23 19:00 | NUR ---
PT CARE ASSUMED. RR EVEN AND UNLABORED ON RA. NO S/S OF DISTRESS NOTED AT THIS. NO CONCERNS NOTED. CALL LIGHT IN REACH. WILL CTM.
[2018-12-23 19:49] VITALS: BP 105/75
[2018-12-23 23:39] VITALS: BP 117/57
[2018-12-24 04:28] VITALS: BP 105/68
[2018-12-24 07:22] LABS: BASOPHILS 0.4 % (0-2); EOSINOPHILS 1.9 % (0-7); HEMOGLOBIN 10.4 g/dL (12-16); IMMATURE GRANULOCYTES 1.1 % (0-5); MCH 35.5 pg (26.0-34.0); MCHC 32.5 g/dL (31.0-37.0); MCV 109.2 fL (80.0-100.0); MEAN PLATELET VOLUME 10.4 fL (7.4-10.4); MONOCYTES 7.8 % (2-11); NEUTROPHILS 67.8 % (40-80); PLATELET COUNT 266 10x3/uL (130-400); RBC 2.93 10x6/uL (4.00-5.40); RDW 14.3 % (11.5-14.5)
[2018-12-24 07:27] LABS: WBC 8.5 10x3/uL (4.8-10.8)
[2018-12-24 07:49] LABS: CALC OSMOLALITY 284 mosm/kg (275-300); CARBON DIOXIDE 24.1 mmol/L (21.0-32.0); CHLORIDE - SERUM 105 mmol/L (98-107); CREATININE - SERUM 0.8 mg/dL (0.6-1.3); GLUCOSE 247 mg/dL (74-106); MAGNESIUM - SERUM 1.8 mg/dL (1.8-2.4); POTASSIUM - SERUM 3.8 mmol/L (3.5-5.1); SODIUM 138 mmol/L (136-145); UREA NITROGEN 15 mg/dL (7-18); eGFR NON AFRICAN AMERICAN 85 mL/min (90-120)
[2018-12-24 08:00] VITALS: BP 134/91
--- NOTE | 2018-12-24 08:01 | NUR ---
ALERT AND ORIENTED X4. IVF INFUSING TO LEFT F/A AT PRESCRIBED RATE. ABDOMEN PAIN IMPROVED WITH SLIGHT TENDERNESS TO LLQ ANTERIOR. LUNGS CTA. ENCOURAGD TO USE CALL LIGHT FOR ASSSIT.
[2018-12-24] MEDS ORDERED: FLAGYL500 MG PO (08:38)
[2018-12-24] MEDS ORDERED: LEVAQUIN750 MG PO (08:38)
[2018-12-24] MEDS ORDERED: MIRALAX17 GM PO (08:39)
--- NOTE | 2018-12-24 12:50 | NUR ---
IV DISCONTINUED AND VERBALIZED UNDERSTANDING OF DISCHARGE INSTRUCTIONS. STABLE AT TIME OF DEPARTURE.
--- NOTE | 2018-12-24 14:58 | MORECARE ---
CASE MANAGEMENT DISCHARGE SUMMARY PATIENT: FLAKITA GUZMAN UNIT: [id number] ADM DATE: 12/22/18 AGE: 38 : 80 SEX: F ROOM/BED: D.1209 AUTHOR: RACHEL XIE PHYSICIAN: REFERRING PHYSICIAN: SAGE GOMEZ MD DATE OF SERVICE: 12/24/18 Discharge Plan Patient Name: FLAKITA GUZMAN Facility: [facility]:[place] : 1980 Planned Disposition: Home Anticipated Discharge Date: Discharge Date: 12/24/2018 Expected LOS: Initial Reviewer: [email or web address] Initial Review Date: 12/22/2018 Generated: 12/24/18 3:57 pm Patient Name: FLAKITA GUZMAN Page [id number] at 1458 All edits/amendments must be made on the electronic document DICTATION DATE: 12/24/181456 CARBON CLEANER: VERONICA 12/24/181456 RPT#: [id number] DC DATE:12/24/18 STATUS: DIS IN [facility] [address] [place] [address] END OF REPORT
== END 2018-12-24 12:50 | disposition home or self-care (01) | DRG 392 ==
LOC: D.M3 12:54
PROVIDERS: ADMIT Internal Medicine Nephrology; ATTEND Internal Medicine Nephrology
DX: K57.32 Diverticulitis of large intestine without perforation or abscess without bleeding (principal); N17.9 Acute kidney failure, unspecified; E11.9 Type 2 diabetes mellitus without complications; I10 Essential (primary) hypertension; K21.9 Gastro-esophageal reflux disease without esophagitis; D53.9 Nutritional anemia, unspecified; Q96.9 Turner's syndrome, unspecified; E03.9 Hypothyroidism, unspecified; E66.01 Morbid (severe) obesity due to excess calories; Z68.35 Body mass index [BMI] 35.0-35.9, adult

== ENCOUNTER 2019-03-15 10:21 | Inpatient (IN) | payer OTHER, MEDICAID ==
[~2019-03-15] VITALS: Ht 165.1 cm; Wt 96.8 kg
[~2019-03-15 10:21] MED LIST changes: +FLAGYL500 MG PO; +MIRALAX17 GM PO
[2019-03-15 11:23] LABS: BASOPHILS 0.2 % (0-2); EOSINOPHILS 1.9 % (0-7); HEMATOCRIT 37.7 % (36.0-48.0); HEMOGLOBIN 12.6 g/dL (12-16); IMMATURE GRANULOCYTES 0.6 % (0-5); LYMPHOCYTES 27.1 % (15-50); MCH 36.3 pg (26.0-34.0); MCHC 33.4 g/dL (31.0-37.0); MCV 108.6 fL (80.0-100.0); MEAN PLATELET VOLUME 10.3 fL (7.4-10.4); MONOCYTES 5.2 % (2-11); PLATELET COUNT 306 10x3/uL (130-400); RBC 3.47 10x6/uL (4.00-5.40); RDW 13.8 % (11.5-14.5); WBC 9.8 10x3/uL (4.8-10.8)
[2019-03-15 11:42] LABS: ALBUMIN 3.8 g/dL (3.4-5.0); ANION GAP 16.8 mmol/L (8-16); BILIRUBIN - TOTAL 0.38 mg/dL (0.2-1.3); CREATININE - SERUM 1.1 mg/dL (0.6-1.3); POTASSIUM - SERUM 4.8 mmol/L (3.5-5.1); PROTEIN - SERUM 7.9 g/dL (6.4-8.2)
[2019-03-15] MEDS ORDERED: FOLIC ACID0.8 MG PO (12:01)
[2019-03-15] MEDS ORDERED: VITAMIN B-12500 MCG PO (12:02)
[2019-03-15] MEDS ORDERED: BENTYL 20 MG TA20 MG PO (12:02)
[2019-03-15 12:19] LABS: % SATURATION 23 % (15-55); IRON 72 ug/dl (35-150); TOTAL IRON BIND CAPACITY 310 ug/dl (260-445); UNSAT IRON BIND CAPACITY 238 ug/dl (150-375)
--- NOTE | 2019-03-15 12:25 | NUR ---
ASSESSMENT PER FLOW SHEET. IV SITED TO LEFT FOREARM X2 STICKS USING ASEPTIC TECH,20G. PT IS UNABLE TO VOID AT THIS TIME.WILL COLLECT URINE FOR LABS WHEN SHE GOES TO BATHROOM.ORIENTATION TO ROOM.CALL LIGHT IN REACH
[2019-03-15 15:05] LABS: APPEARANCE CLEAR (CLEAR); BILIRUBIN NEGATIVE (NEGATIVE); COLOR STRAW (YELLOW); GLUCOSE 100 mg/dL (NEGATIVE); HCG URINE NEGATIVE (NEGATIVE); KETONE NEGATIVE (NEGATIVE); NITRITE NEGATIVE (NEGATIVE); PROTEIN NEGATIVE (NEGATIVE); SPECIFIC GRAVITY 1.015 (1.005-1.020); UROBILINOGEN NORMAL (NORMAL)
[2019-03-15 16:40] VITALS: BP 122/86
[2019-03-15 20:00] VITALS: BP 143/93
--- NOTE | 2019-03-15 21:00 | NUR ---
A/O WITH NO SIGNS OF DISTRESS. IV TO THE LT FOREARM WITH NO REDNESS OR SWELLING NOTED. DENIES NO NEEDS AT THIS TIME. CONTINUE PLAN OF CARE.
[2019-03-16] VITALS: BP 131/86
[2019-03-16 04:00] VITALS: BP 101/67
[2019-03-16 05:17] LABS: BASOPHILS 0.4 % (0-2); EOSINOPHILS 2.4 % (0-7); HEMATOCRIT 35.3 % (36.0-48.0); HEMOGLOBIN 11.7 g/dL (12-16); IMMATURE GRANULOCYTES 0.9 % (0-5); LYMPHOCYTES 26.3 % (15-50); MCH 35.6 pg (26.0-34.0); MCHC 33.1 g/dL (31.0-37.0); MCV 107.3 fL (80.0-100.0); MEAN PLATELET VOLUME 10.4 fL (7.4-10.4); MONOCYTES 7.6 % (2-11); NEUTROPHILS 62.4 % (40-80); PLATELET COUNT 266 10x3/uL (130-400); RBC 3.29 10x6/uL (4.00-5.40); RDW 13.4 % (11.5-14.5); WBC 7.6 10x3/uL (4.8-10.8)
[2019-03-16 06:21] LABS: ANION GAP 18.5 mmol/L (8-16); CALCIUM 8.8 mg/dL (8.5-10.1); CARBON DIOXIDE 21.6 mmol/L (21.0-32.0); CREATININE - SERUM 0.9 mg/dL (0.6-1.3); POTASSIUM - SERUM 4.1 mmol/L (3.5-5.1)
[2019-03-16 08:29] VITALS: BP 126/92
[2019-03-16 12:52] VITALS: BP 102/46
[2019-03-16 15:23] VITALS: BP 122/86; Ht 165.1 cm; Wt 96.8 kg
--- NOTE | 2019-03-16 16:26 | MORECARE ---
CASE MANAGEMENT DISCHARGE SUMMARY PATIENT: FLAKITA GUZMAN UNIT: [id number] ADM DATE: 03/15/19 AGE: 38 : 80 SEX: F ROOM/BED: D.2224 AUTHOR: ANNE-MARIE,DOC PHYSICIAN: REFERRING PHYSICIAN: SKYLER PADILLA DO DATE OF SERVICE: 03/16/19 Discharge Plan Patient Name: FLAKITA GUZMAN Facility: [facility]:[place] : 1980 Planned Disposition: Home Anticipated Discharge Date: 03/16/19 Discharge Date: Expected LOS: 1 Initial Reviewer: [email or web address] Initial Review Date: 03/16/2019 Generated: 03/16/19 5:25 pm Comments DCP- Discharge Planning Updated by [email or web address]: Lizzy Gray on 03/16/19 3:[address] Patient Name: FLAKITA GUZMAN Admission Status: Urgent Accout number: [id number] Admission Date: 03-15-2019 : 1980 Admission Diagnosis: Attending: SKYLER PADILLA Current LOS: 1 Anticipated DC Date: 03-16-2019 Planned Disposition: Home Primary Insurance: [employer] PPO Discharge Planning Comments: CM met with patient to complete initial dc planning assessment. CM educated patient on the CM role and verbal consent given by patient to complete assessment. Patient lives at home with her boyfriend and several other family members. At discharge patient plans to return and feels this is a safe discharge. CM discussed availability of home health, rehab services, and medical equipment. Patient denied known discharge needs at this time. States her boyfriend and her dad will transport her home, states they are both coming because my car is in the parking lot and one of them can drive my car. CM will continue to follow and will assist as needed with dc plans/needs. Consultative Sales Associate: Lizzy Gray DCPIA - Discharge Planning Initial Assessment Updated by [email or web address]: Lizzy Gray on 03/16/19 4:18 pm * Is the patient Alert and Oriented? Yes * PCP Dr. Padilla * Pharmacy [facility] on [address] * Preadmission Environment Home with Family * ADLs Independent * Equipment CPAP * Other Equipment CPAP from [facility] * List name and contact numbers for known caregivers / representatives who currently or will assist patient after discharge: Rito [email or web address] - [phone] * Verbal permission to speak to the caregivers and representatives has been obtained from the patient. Yes * Community resources currently utilized None * Additional services required to return to the preadmission environment? No * Can the patient safely return to the preadmission environment? Yes * Has this patient been hospitalized within the prior 30 days at any hospital? No Patient Name: FLAKITA GUZMAN Page [id number] at 1626 All edits/amendments must be made on the electronic document DICTATION DATE: 03/16/19 1625 ART PROFESSOR: VERONICA 03/16/19 1625 RPT#: [id number] DC DATE: STATUS: ADM IN [facility] [address] [place] [address] END OF REPORT
[2019-03-16] MEDS ORDERED: FLAGYL500 MG PO (16:32)
[2019-03-16] MEDS ORDERED: LEVAQUIN750 MG PO (16:32)
[2019-03-16 18:14] VITALS: BP 105/70; BP 145/85
--- NOTE | 2019-03-16 18:50 | NUR ---
DISCHARGE INSTRUCTIONS REVIEWED WITH PT AND VERBALIZES UNDERSTANDING WITH NO QUESTIONS. IV REMOVED WITH TIP INTACT AND WITHOUT DIFFICULTY. LEFT FLOOR VIA W/C WITH ALL PERSONAL BELONGINGS AND LEFT FACILTIY VIA PRIVATE VEHICLE WITH HER .
--- NOTE | 2019-03-17 10:00 | MORECARE ---
CASE MANAGEMENT DISCHARGE SUMMARY PATIENT: FLAKITA GUZMAN UNIT: [id number] ADM DATE: 03/15/19 AGE: 38 : 80 SEX: F ROOM/BED: D.2224 AUTHOR: ANNE-MARIE,DOC PHYSICIAN: REFERRING PHYSICIAN: SKYLER PADILLA DO DATE OF SERVICE: 03/17/19 Discharge Plan Patient Name: FLAKITA GUZMAN Facility: [facility]:[place] : 1980 Planned Disposition: Home Anticipated Discharge Date: 03/16/19 Discharge Date: 03/16/2019 Expected LOS: 1 Initial Reviewer: [email or web address] Initial Review Date: 03/16/2019 Generated: 03/17/19 10:59 am Comments DCP- Discharge Planning Updated by [email or web address]: Lizzy Gray on 03/16/19 3:[address] Patient Name: FLAKITA GUZMAN Admission Status: Urgent Accout number: [id number] Admission Date: 03-15-2019 : 1980 Admission Diagnosis: Attending: SKYLER PADILLA Current LOS: 1 Anticipated DC Date: 03-16-2019 Planned Disposition: Home Primary Insurance: [employer] PPO Discharge Planning Comments: CM met with patient to complete initial dc planning assessment. CM educated patient on the CM role and verbal consent given by patient to complete assessment. Patient lives at home with her boyfriend and several other family members. At discharge patient plans to return and feels this is a safe discharge. CM discussed availability of home health, rehab services, and medical equipment. Patient denied known discharge needs at this time. States her boyfriend and her dad will transport her home, states they are both coming because my car is in the parking lot and one of them can drive my car. CM will continue to follow and will assist as needed with dc plans/needs. Public Information Coordinator: Lizzy Gray DCPIA - Discharge Planning Initial Assessment Updated by [email or web address]: Lizzy Gray on 03/16/19 4:18 pm * Is the patient Alert and Oriented? Yes * PCP Dr. Padilla * Pharmacy [facility] on [address] * Preadmission Environment Home with Family * ADLs Independent * Equipment CPAP * Other Equipment CPAP from [facility] * List name and contact numbers for known caregivers / representatives who currently or will assist patient after discharge: Rito Farrar - [email or web address] - [phone] * Verbal permission to speak to the caregivers and representatives has been obtained from the patient. Yes * Community resources currently utilized None * Additional services required to return to the preadmission environment? No * Can the patient safely return to the preadmission environment? Yes * Has this patient been hospitalized within the prior 30 days at any hospital? No Last DP export: 03/16/19 3:26 pm Patient Name: FLAKITA GUZMAN Page [id number] at 1000 All edits/amendments must be made on the electronic document DICTATION DATE: 03/17/19958 MATERNAL CHILD NURSE: VERONICA 03/17/19958 RPT#: [id number] DC DATE:03/16/19 STATUS: DIS IN [facility] [address] [place] [address] END OF REPORT
== END 2019-03-16 18:52 | disposition home or self-care (01) | DRG 392 ==
LOC: D.MS 10:21
PROVIDERS: Emergency Medicine; ADMIT Family Medicine; ATTEND Family Medicine
DX: K57.92 Diverticulitis of intestine, part unspecified, without perforation or abscess without bleeding (principal); E87.1 Hypo-osmolality and hyponatremia; D53.9 Nutritional anemia, unspecified; E11.65 Type 2 diabetes mellitus with hyperglycemia; E11.40 Type 2 diabetes mellitus with diabetic neuropathy, unspecified; Q96.9 Turner's syndrome, unspecified; I10 Essential (primary) hypertension; E03.9 Hypothyroidism, unspecified; K21.9 Gastro-esophageal reflux disease without esophagitis